=== PATIENT | male | born 1935 | race Caucasian/White ===

== ENCOUNTER 2017-12-06 06:24 | Day surgery (SDC) | payer MEDICARE, OTHER ==
[~2017-12-06] VITALS: Ht 157.5 cm; Wt 75.9 kg
[~2017-12-06 06:24] MED LIST: ATEN25TA PO; BICA50TA7; CYCLOPENTOLATE HCL 1% 2 ML OPHTHALMIC SOLUTION ONE; EZET10 PO; FAMO-39 PO; FINA5TAB41 PO; FOLI1TAB15 PO; PHENYLEPHRINE HCL 2.5% 2 ML OPHTHALMIC SOLUTION ONE; RINGERS SOLUTION,LACTATED 500 ML IV ONE; ROSU10 PO; SERT50TA12; TAMS0.4C32 PO; TROPICAMIDE 1% 2 ML OPHTHALMIC SOLUTION ONE
[2017-12-06] MEDS ORDERED: MethylPREDNISolone SOD SUCC 40 MG/ML VIAL ONE (06:44)
[2017-12-06] MEDS ORDERED: EPINEPHrine 1:1,000 [1 MG/ML] AMP ONE (06:44)
[2017-12-06] MEDS ORDERED: DEXAMETHASONE SOD PHOS 4 MG/ML VIAL ONE (06:44)
[2017-12-06] MEDS ORDERED: NEOMYCIN/POLYMYXIN B/DEXAMETH 3.5 GM OPHTHALMIC OINTMENT ONE (06:45)
[2017-12-06] MEDS ORDERED: TETRACAINE HCL VISCOUS 0.5% 0.6 ML OPHTHALMIC SOLUTION ONE (06:45)
[2017-12-06] MEDS ORDERED: LIDOCAINE HCL/PF 1% 30 ML VIAL ONE (06:45)
[2017-12-06] MEDS ORDERED: MethylPREDNISolone SOD SUCC 125 MG/2 ML VIAL ONE (06:45)
[2017-12-06] MEDS ORDERED: VANCOMYCIN HCL 500 MG/VIAL ONE (06:45)
[2017-12-06] MEDS ORDERED: SODIUM CHLORIDE 0.9% 10 ML ONE ×2 (06:46→06:51)
[2017-12-06] MEDS ORDERED: BALANCED SALT 15 ML OPHTHALMIC IRRIG.SOLN ONE (07:02)
[2017-12-06] MEDS: PHENYLEPHRINE HCL 2.5% 2 ML OPHTHALMIC SOLUTION OD SCH ×3 (07:08→07:19)
[2017-12-06] MEDS: TROPICAMIDE 1% 2 ML OPHTHALMIC SOLUTION OD SCH ×3 (07:08→07:19)
[2017-12-06] MEDS: CYCLOPENTOLATE HCL 1% 2 ML OPHTHALMIC SOLUTION OD SCH ×3 (07:08→07:19)
[2017-12-06] MEDS ORDERED: LIDOCAINE HCL/PF 1% 2 ML VIAL ONE (07:12)
[2017-12-06] MEDS ORDERED: FLURBIPROFEN SODIUM 0.03% 2.5 ML OPHTHALMIC SOLUTION OD SCH (07:40)
[2017-12-06] MEDS ORDERED: FLURBIPROFEN SODIUM 0.03% 2.5 ML OPHTHALMIC SOLUTION ONE (07:42)
[2017-12-06] MEDS ORDERED: ACETAMINOPHEN 1000 MG/ISO-OSM 100 ML IV ONE (08:52)
[2017-12-06] MEDS ORDERED: MIDAZOLAM HCL 2 MG/2 ML VIAL IVP ONE (12:00)
[2017-12-06] MEDS ORDERED: FentaNYL CITRATE-PF 100 MCG/2 ML VIAL IVP ONE (12:00)
== END 2017-12-06 09:25 | disposition home or self-care (01) ==
LOC: SURGERY 06:24
PROVIDERS: ATTEND Ophthalmology
DX: E11.36 Type 2 diabetes mellitus with diabetic cataract (principal); H25.11 Age-related nuclear cataract, right eye; E78.5 Hyperlipidemia, unspecified; I48.91 Unspecified atrial fibrillation; M19.90 Unspecified osteoarthritis, unspecified site; I11.9 Hypertensive heart disease without heart failure; I25.10 Atherosclerotic heart disease of native coronary artery without angina pectoris; K21.9 Gastro-esophageal reflux disease without esophagitis; I25.2 Old myocardial infarction; F32.9 Major depressive disorder, single episode, unspecified; Z88.6 Allergy status to analgesic agent; Z85.118 Personal history of other malignant neoplasm of bronchus and lung; Z85.46 Personal history of malignant neoplasm of prostate; Z87.891 Personal history of nicotine dependence; Z90.49 Acquired absence of other specified parts of digestive tract; Z89.021 Acquired absence of right finger(s); Z86.74 Personal history of sudden cardiac arrest; Z84.89 Family history of other specified conditions; Z98.890 Other specified postprocedural states; Z79.899 Other long term (current) drug therapy
CPT/HCPCS: 66984; 93005; C1780; J0131; J0171; J0690; J2250; J2920; J2930; J3010; J3370; J3490; J7120; J1100

== ENCOUNTER 2018-02-07 05:29 | Day surgery (SDC) | payer MEDICARE, OTHER ==
[~2018-02-07] VITALS: Ht 160 cm; Wt 76.4 kg
[~2018-02-07 05:29] MED LIST changes: +ALOE25CA2 PO; +ASPI81 PO; -BICA50TA7; -CYCLOPENTOLATE HCL 1% 2 ML OPHTHALMIC SOLUTION ONE; -EZET10 PO; -FOLI1TAB15 PO; +MELA5TAB21 PO; +PARO10TA89 PO; -PHENYLEPHRINE HCL 2.5% 2 ML OPHTHALMIC SOLUTION ONE; +RANI-257 PO; -RINGERS SOLUTION,LACTATED 500 ML IV ONE; -ROSU10 PO; -SERT50TA12; +TEMA15CA PO; -TROPICAMIDE 1% 2 ML OPHTHALMIC SOLUTION ONE
[2018-02-07] MEDS ORDERED: LIDOCAINE/PF 1% 2 ML VIAL IM ONE (05:30)
[2018-02-07] MEDS ORDERED: MIDAZOLAM HCL 2 MG/2 ML VIAL IVP ONE (05:30)
[2018-02-07] MEDS ORDERED: ACETYLCHOLINE CHLORIDE 1 EA INTRAOCULAR SOLUTION KIT IO ONE (05:30)
[2018-02-07] MEDS ORDERED: NEOMYCIN/POLYMYXIN B/DEXAMETH 3.5 GM OPHTHALMIC OINTMENT OS ONE (05:30)
[2018-02-07] MEDS ORDERED: MethylPREDNISolone SOD SUCC 125 MG/2 ML VIAL IVP ONE (05:30)
[2018-02-07] MEDS ORDERED: HYALURONATE SODIUM 12 MG/ML 0.8 ML SYRINGE IO ONE (05:30)
[2018-02-07] MEDS ORDERED: POVIDONE-IODINE 10% 15 ML SOLUTION UD TP ONE (05:30)
[2018-02-07] MEDS ORDERED: BALANCED SALT 15 ML OPHTHALMIC IRRIG.SOLN OS ONE (05:30)
[2018-02-07] MEDS ORDERED: EPINEPHrine 1:1,000 [1 MG/ML] AMP IM ONE (05:30)
[2018-02-07] MEDS ORDERED: TETRACAINE HCL/PF 0.5% 4 ML OPHTHALMIC SOLUTION OS ONE (05:30)
[2018-02-07] MEDS ORDERED: RINGERS SOLUTION,LACTATED 500 ML IV ONE ×2 (06:00→06:08)
[2018-02-07] MEDS ORDERED: TROPICAMIDE 1% 2 ML OPHTHALMIC SOLUTION ONE (06:51)
[2018-02-07] MEDS ORDERED: CYCLOPENTOLATE HCL 1% 2 ML OPHTHALMIC SOLUTION ONE (06:52)
[2018-02-07] MEDS ORDERED: PHENYLEPHRINE HCL 2.5% 2 ML OPHTHALMIC SOLUTION ONE (06:52)
[2018-02-07] MEDS: PHENYLEPHRINE HCL 2.5% 2 ML OPHTHALMIC SOLUTION OS SCH ×3 (06:54→07:08)
[2018-02-07] MEDS: TROPICAMIDE 1% 2 ML OPHTHALMIC SOLUTION OS SCH ×3 (06:54→07:08)
[2018-02-07] MEDS: CYCLOPENTOLATE HCL 1% 2 ML OPHTHALMIC SOLUTION OS SCH ×3 (06:54→07:08)
[2018-02-07] MEDS ORDERED: FLURBIPROFEN SODIUM 0.03% 2.5 ML OPHTHALMIC SOLUTION ONE (08:16)
[2018-02-07] MEDS: FLURBIPROFEN SODIUM 0.03% 2.5 ML OPHTHALMIC SOLUTION OS SCH ×3 (08:18→08:29)
== END 2018-02-07 10:35 | disposition home or self-care (01) ==
LOC: SURGERY 05:29 → EDBD 07:30 → SURGERY 10:35
PROVIDERS: ATTEND Ophthalmology
DX: H25.12 Age-related nuclear cataract, left eye (principal); H21.81 Floppy iris syndrome; I45.19 Other right bundle-branch block; I10 Essential (primary) hypertension; E78.00 Pure hypercholesterolemia, unspecified; I25.2 Old myocardial infarction; F32.9 Major depressive disorder, single episode, unspecified; Z86.74 Personal history of sudden cardiac arrest; Z85.46 Personal history of malignant neoplasm of prostate; Z92.3 Personal history of irradiation; Z79.82 Long term (current) use of aspirin; Z98.41 Cataract extraction status, right eye; Z90.49 Acquired absence of other specified parts of digestive tract; Z98.890 Other specified postprocedural states; Z79.899 Other long term (current) drug therapy; Z84.89 Family history of other specified conditions
CPT/HCPCS: 66982; 93005; C1780; J0171; J2250; J2930; J3490 ×2; J7120